=== PATIENT | female | born 1935 | race African-American/Black ===

== ENCOUNTER 2017-12-16 14:51 | Inpatient (IN) | payer OTHER ==
--- NOTE | 2017-12-16 14:53 | PDOC ---
History of Present Illness - History of Present Illness Initial Comments: 12/16/17 15:14 82 y/o F with a PMH of NIDDM, HTN, HLD presents to the ED with AMS today. Per daughter, patient has had recent falls, but has not complained of pain. Daughter states the patient is not oriented to time. Patient had a similar episode of AMS in 2013. Daughter states that the patient has experienced increased urination. Denies fever, chills. Denies chest pain, SOB, N/V/D. <Tatyana Rene - Last Filed: 12/16/17 15:15> <Charlotte Ma - Last Filed: 12/16/17 18:12> - General Chief Complaint: Altered Mental Status Stated Complaint: disoreineted Time Seen by Provider: 12/16/17 14:52 Past History <Tatyana Rene - Last Filed: 12/16/17 15:15> - Past Medical History Diabetes: Yes (TYPE II) HTN: Yes Hypercholesterolemia: Yes - Suicide/Smoking/Psychosocial Hx Smoking Status: Yes Smoking History: Former smoker Have you smoked in the past 12 months: No Number of Cigarettes Smoked Daily: 0 Hx Alcohol Use: No Drug/Substance Use Hx: No Substance Use Type: None Hx Substance Use Treatment: No <Charlotte Ma - Last Filed: 12/16/17 18:12> - Past Medical History Allergies/Adverse Reactions: Allergies Allergy/AdvReac Type Severity Reaction Status Date / Time Penicillins Allergy Unknown Verified 12/16/17 17:51 Home Medications: Ambulatory Orders Atorvastatin Ca [Lipitor] 20 mg PO HS 12/16/17 Losartan Potassium 100 mg PO DAILY 12/16/17 Metformin Xr [Glucophage *Xr* -] 500 mg PO DAILY 12/16/17 Review of Systems - Review of Systems Comments:: 12/16/17 15:14 GENERAL/CONSTITUTIONAL: No fever or chills. No weakness. HEAD, EYES, EARS, NOSE AND THROAT: No change in vision. No ear pain or discharge. No sore throat. CARDIOVASCULAR: No chest pain or shortness of breath. RESPIRATORY: No cough, wheezing, or hemoptysis. GASTROINTESTINAL: No nausea, vomiting, diarrhea or constipation. GENITOURINARY: (+) increased urination. No dysuria. MUSCULOSKELETAL: No joint or muscle swelling or pain. No neck or back pain. SKIN: No rash NEUROLOGIC: (+) recent falls, AMS. No headache, vertigo, loss of consciousness, or change in strength/sensation. ENDOCRINE: No increased thirst. No abnormal weight change. HEMATOLOGIC/LYMPHATIC: No anemia, easy bleeding, or history of blood clots. ALLERGIC/IMMUNOLOGIC: No hives or skin allergy. <AnjuTatyana A - Last Filed: 12/16/17 15:15> *Physical Exam - Physical Exam Comments: GENERAL: Awake, alert, and oriented to person and place, in no acute distress HEAD: No signs of trauma EYES: PERRLA, EOMI, sclera anicteric, conjunctiva clear ENT: Auricles normal inspection, hearing grossly normal, nares patent, oropharynx clear without exudates. Moist mucosa NECK: Normal ROM, supple, no lymphadenopathy, JVD, or masses LUNGS: Breath sounds equal, clear to auscultation bilaterally. No wheezes, and no crackles HEART: Regular rate and rhythm, normal S1 and S2, no murmurs, rubs or gallops ABDOMEN: Soft, nontender, normoactive bowel sounds. No guarding, no rebound. No masses EXTREMITIES: Normal range of motion, no edema. No clubbing or cyanosis. No cords, erythema, or tenderness NEUROLOGICAL: Cranial nerves II through XII grossly intact. Normal speech, normal gait. Motor and sensation intact. SKIN: Warm, Dry, normal turgor, no rashes or lesions noted. <Charlotte Ma - Last Filed: 12/16/17 18:12> Heart Score/ECG Review - ECG Impressions Comment:: EKG read 15:12- NSR 70 bpm, no acute ST/T changes <Charlotte Ma - Last Filed: 12/16/17 18:12> ED Treatment Course - LABORATORY CBC & Chemistry Diagram: 12/16/17 15:10 12/16/17 14:53 <Charlotte Ma - Last Filed: 12/16/17 18:12> Medical Decision Making - Medical Decision Making 12/16/17 15:12 Pt presents with AMS x1 day, disoriented to time, does not answer questions related to the date, current president, etc. Will do AMS workup. UTI is most likely etiology, however, will obtain labs, cultures, CXR and CTH. 12/16/17 15:51 CTH and CXR reviewed, both within normal limits. Awaiting UA. 12/16/17 18:11 Late entry. No obvious etiology for AMS in labs, CXR, UA, CTH. Patient had similar symptoms almost exactly 5 years ago, unclear what prompted them. No signs of meningismus, skin infection. Patient is well-appearing apart from the confusion. She answers questions appropriately. No neuro deficits. Will admit to hospitalist service. Case d/w hospitalist DRAMA TEACHER. <Charlotte Ma - Last Filed: 12/16/17 18:12> *DC/Admit/Observation/Transfer - Attestations Scribe Attestion: 12/16/17 15:15 Documentation prepared by Tatyana Rene, acting as biomedical field service engineer for Charlotte Ma MD. <Tatyana Rene - Last Filed: 12/16/17 15:15> - Discharge Dispostion Admit: Yes <Charlotte Ma - Last Filed: 12/16/17 18:12> Diagnosis at time of Disposition: Altered mental status Qualifiers: Altered mental status type: delirium Qualified Code(s): R41.0 - Disorientation , unspecified - Discharge Dispostion Condition at time of disposition: Stable
[2017-12-16 15:25] LABS: HEMOGLOBIN 13.4 GM/dl (10.7-15.3)
[2017-12-16 15:37] LABS: INR 1.06 (0.82-1.09); PROTHROMBIN TIME (PATIENT) 11.8 SEC (10.2-13.0)
[2017-12-16 15:40] LABS: ALBUMIN 3.8 g/dl (3.5-5.0); ALK PHOS 51 U/L (32-92); ANION GAP 7 (8-16); BILIRUBIN,TOTAL 0.4 mg/dl (0.2-1.0); BLOOD UREA NITROGEN 19 mg/dl (7-18); CALCIUM 9.3 mg/dl (8.4-10.2); CHLORIDE 101 mmol/L (98-107); CO2 28 mmol/L (22-28); CREATININE 0.8 mg/dl (0.6-1.3); GLUCOSE,RANDOM 113 mg/dl (74-106); POTASSIUM 3.8 mmol/L (3.5-5.1); SGOT/AST 22 U/L (10-42); SGPT/ALT 20 U/L (10-40); SODIUM 136 mmol/L (136-145); TOT PROT 7.2 g/dl (6.4-8.3)
[2017-12-16 15:43] LABS: BASO % 0.6 % (0-2.0); EOS % 0.9 % (0-4.5); HEMATOCRIT 41.9 % (32.4-45.2); LYMPH % 25.1 % (8-40); MCHC 32.1 g/dl (32.0-36.0); MEAN CELL VOLUME 90.4 fl (80-96); MEAN PLT VOLUME 10.2 fl (7.5-11.1); MONO % 11.4 % (3.8-10.2); PLATELET COUNT 163 K/MM3 (134-434); RBC 4.63 M/mm3 (3.60-5.2); RDW 13.6 % (11.6-15.6); WHITE BLOOD COUNT 7.9 K/mm3 (4.0-10.8)
[2017-12-16] MEDS ORDERED: SODIUM CHLORIDE 1,000 ML IV STA (16:00)
[2017-12-16 16:56] LABS: URINE APPEARANCE Clear; URINE BILIRUBIN Negative (NEGATIVE); URINE BLOOD Negative (NEGATIVE); URINE GLUCOSE (UA) Negative (NEGATIVE); URINE KETONE Negative (NEGATIVE); URINE LEUK ESTERASE Negative (NEGATIVE); URINE NITRITE Negative (NEGATIVE); URINE PROTEIN Negative (NEGATIVE); URINE UROBILINOGEN 0.2 (0.2-1.0)
[2017-12-16 17:01] LABS: URINE COLOR YELLOW
[2017-12-16 17:17] LABS: LIPASE 312 U/L (73-393)
[2017-12-16 20:46] VITALS: BMI 30.2
--- NOTE | 2017-12-16 23:18 | HP ---
CHIEF COMPLAINT: AMS x1 day PCP: unknown HISTORY OF PRESENT ILLNESS: This is an 82-year-old woman with past medical history of hypertension, NIDDM, hyperlipidemia presents to emergency department with 1 day of altered mental status. Patient's daughter recognized that the patient was disoriented to time and brought her to the emergency department for further evaluation. Patient reports having urinary frequency and dysuria. Patient has been having frequent falls over the past week. Patient had had a similar episode approximately 5 years ago and was found to have influenza at that time. She denies any fevers, chills, shortness of breath, cough, abdominal pain, nausea, vomiting, diarrhea. ER course was notable for: (1) CTH- Moderate atrophy. Chronic microvascular ischemic changes. No gross acute intracranial pathology. (2) UA, CXR, NH4, TSH- WNL (3) Recent Travel: denies PAST MEDICAL HISTORY: see HPI PAST SURGICAL HISTORY: see HPI Social History: Smoking: former- does not remember when she quit Alcohol: denies Drugs: denies Family History: Allergies Penicillins Allergy (Unknown, Verified 12/16/17 17:51) HOME MEDICATIONS: Home Medications Medication Instructions Recorded Atorvastatin Ca [Lipitor] 20 mg PO HS 12/16/17 Losartan Potassium 100 mg PO DAILY 12/16/17 Metformin Xr [Glucophage *Xr* -] 500 mg PO DAILY 12/16/17 REVIEW OF SYSTEMS CONSTITUTIONAL: Absent: fever, chills, diaphoresis, generalized weakness, malaise, loss of appetite, weight change HEENT: Absent: rhinorrhea, nasal congestion, throat pain, throat swelling, difficulty swallowing, mouth swelling, ear pain, eye pain, visual changes CARDIOVASCULAR: Absent: chest pain, syncope, palpitations, irregular heart rate, lightheadedness , peripheral edema RESPIRATORY: Present- cough Absent: shortness of breath, dyspnea with exertion, orthopnea, wheezing, stridor , hemoptysis GASTROINTESTINAL: Absent: abdominal pain, abdominal distension, nausea, vomiting, diarrhea, constipation, melena, hematochezia GENITOURINARY: Absent: dysuria, frequency, urgency, hesitancy, hematuria, flank pain, genital pain MUSCULOSKELETAL: Absent: myalgia, arthralgia, joint swelling, back pain, neck pain SKIN: Absent: rash, itching, pallor HEMATOLOGIC/IMMUNOLOGIC: Absent: easy bleeding, easy bruising, lymphadenopathy, frequent infections ENDOCRINE: Absent: unexplained weight gain, unexplained weight loss, heat intolerance, cold intolerance NEUROLOGIC: Present- mental status changes, frequent falls Absent: headache, focal weakness or paresthesias, dizziness, unsteady gait, seizure, bladder or bowel incontinence PSYCHIATRIC: Absent: anxiety, depression, suicidal or homicidal ideation, hallucinations. PHYSICAL EXAMINATION Vital Signs - 24 hr 12/16/17 12/16/17 12/16/17 14:52 14:55 17:58 Temperature 97.9 F 97.9 F Pulse Rate 72 Pulse Rate [ 64 Right] Respiratory 18 18 Rate Blood Pressure 154/83 Blood Pressure 170/68 [Left Arm] O2 Sat by Pulse 100 97 Oximetry (%) 12/16/17 12/16/17 18:05 22:22 Temperature 97.5 F L Pulse Rate 75 Pulse Rate [ Right] Respiratory 18 Rate Blood Pressure 161/56 Blood Pressure 166/60 [Left Arm] O2 Sat by Pulse 98 Oximetry (%) GENERAL: Awake, alert, and oriented to person only. No acute distress. HEAD: Normal with no signs of trauma. EYES: Pupils equal, round and reactive to light, extraocular movements intact, sclera anicteric, conjunctiva clear. No lid lag. EARS, NOSE, THROAT: Ears normal, nares patent, oropharynx clear without exudates. Moist mucous membranes. NECK: Normal range of motion, supple without lymphadenopathy, JVD, or masses. LUNGS: Breath sounds equal, clear to auscultation bilaterally. No wheezes, and no crackles. No accessory muscle use. HEART: Regular rate and rhythm, normal S1 and S2 without murmur, rub or gallop. ABDOMEN: Soft, nontender, not distended, normoactive bowel sounds, no guarding, no rebound, no masses. No hepatomegaly or splenomegaly. MUSCULOSKELETAL: Normal range of motion at all joints. No bony deformities or tenderness. No CVA tenderness. UPPER EXTREMITIES: 2+ pulses, warm, well-perfused. No cyanosis. No clubbing. No peripheral edema. LOWER EXTREMITIES: 2+ pulses, warm, well-perfused. No calf tenderness. No peripheral edema. NEUROLOGICAL: Cranial nerves II-XII intact. Normal speech. Normal gait. PSYCHIATRIC: Cooperative. Good eye contact. Appropriate mood and affect. SKIN: Warm, dry, normal turgor, no rashes or lesions noted, normal capillary refill. Laboratory Results - last 24 hr 12/16/17 12/16/17 12/16/17 14:53 14:53 14:53 WBC RBC Hgb Hct MCV MCH MCHC RDW Plt Count MPV Neutrophils % Lymphocytes % Monocytes % Eosinophils % Basophils % PT with INR 11.8 INR 1.06 Sodium 136 Potassium 3.8 Chloride 101 Carbon Dioxide 28 Anion Gap 7 L BUN 19 H D Creatinine 0.8 Creat Clearance w eGFR > 60 POC Glucometer Random Glucose 113 H Serum Osmolality Lactic Acid Calcium 9.3 Total Bilirubin 0.4 AST 22 ALT 20 Alkaline Phosphatase 51 Ammonia Creatine Kinase 52 Troponin I Total Protein 7.2 Albumin 3.8 Lipase 312 TSH Urine Color Yellow Urine Appearance Clear Urine pH 7.0 Ur Specific [place] 1.020 Urine Protein Negative Urine Glucose (UA) Negative Urine Ketones Negative Urine Blood Negative Urine Nitrite Negative Urine Bilirubin Negative Urine Urobilinogen 0.2 Ur Leukocyte Esterase Negative 12/16/17 12/16/17 12/16/17 15:01 15:10 15:10 WBC 7.9 D RBC 4.63 Hgb 13.4 Hct 41.9 MCV 90.4 MCH 29.0 MCHC 32.1 RDW 13.6 Plt Count 163 MPV 10.2 Neutrophils % 62.0 Lymphocytes % 25.1 Monocytes % 11.4 H Eosinophils % 0.9 Basophils % 0.6 PT with INR INR Sodium Potassium Chloride Carbon Dioxide Anion Gap BUN Creatinine Creat Clearance w eGFR POC Glucometer [phone] Random Glucose Serum Osmolality Lactic Acid Calcium Total Bilirubin AST ALT Alkaline Phosphatase Ammonia Creatine Kinase Troponin I < 0.03 L Total Protein Albumin Lipase TSH Urine Color Urine Appearance Urine pH Ur Specific [place] Urine Protein Urine Glucose (UA) Urine Ketones Urine Blood Urine Nitrite Urine Bilirubin Urine Urobilinogen Ur Leukocyte Esterase 12/16/17 12/16/17 12/16/17 15:10 17:30 17:30 WBC RBC Hgb Hct MCV MCH MCHC RDW Plt Count MPV Neutrophils % Lymphocytes % Monocytes % Eosinophils % Basophils % PT with INR INR Sodium Potassium Chloride Carbon Dioxide Anion Gap BUN Creatinine Creat Clearance w eGFR POC Glucometer Random Glucose Serum Osmolality 294 Lactic Acid 1.7 Calcium Total Bilirubin AST ALT Alkaline Phosphatase Ammonia 38 H Creatine Kinase Troponin I Total Protein Albumin Lipase TSH 0.74 Urine Color Urine Appearance Urine pH Ur Specific [place] Urine Protein Urine Glucose (UA) Urine Ketones Urine Blood Urine Nitrite Urine Bilirubin Urine Urobilinogen Ur Leukocyte Esterase 12/16/17 20:55 WBC RBC Hgb Hct MCV MCH MCHC RDW Plt Count MPV Neutrophils % Lymphocytes % Monocytes % Eosinophils % Basophils % PT with INR INR Sodium Potassium Chloride Carbon Dioxide Anion Gap BUN Creatinine Creat Clearance w eGFR POC Glucometer 123 Random Glucose Serum Osmolality Lactic Acid Calcium Total Bilirubin AST ALT Alkaline Phosphatase Ammonia Creatine Kinase Troponin I Total Protein Albumin Lipase TSH Urine Color Urine Appearance Urine pH Ur Specific [place] Urine Protein Urine Glucose (UA) Urine Ketones Urine Blood Urine Nitrite Urine Bilirubin Urine Urobilinogen Ur Leukocyte Esterase ASSESSMENT/PLAN: A: 82 female with past medical history of NIDDM, hypertension, hyperlipidemia who was brought to the emergency department by her daughter for 1 day of AMS. P: AMS - CTH No acute pathology - UA and CXR without signs of infection - TSH and NH4- wnl - Similar episode 12/17/12- influenza(+) at that time - flu swab pending - neuro consult- Dickoff HTN - Losaartan 100mg daily HLD - Lipitor 20mg daily NIDDM - FS qACHS - ISS - hold metformin F/E/N - replete prn - Diabetic diet PPX - hold chemical AC 12/15 frequent falls - OOB with assist Dispo- observation Visit type - Emergency Visit Emergency Visit: Yes ED Registration Date: 12/16/17 Care time: The patient presented to the Emergency Department on the above date and was hospitalized for further evaluation of their emergent condition. - New Patient This patient is new to me today: Yes Date on this admission: 12/17/17 - Critical Care Critical Care patient: No
[2017-12-17] MEDS: INSULIN SLIDING SCALE (NOVOLOG) 1 VIAL SQ SCH ×4 (07:08→21:46)
[2017-12-17 08:52] LABS: BASO % 0.5 % (0-2.0); EOS % 1.4 % (0-4.5); HEMOGLOBIN 12.7 GM/dl (10.7-15.3); LYMPH % 37.9 % (8-40); MCH 30.5 pg (25.7-33.7); MCHC 33.3 g/dl (32.0-36.0); MEAN CELL VOLUME 91.5 fl (80-96); MEAN PLT VOLUME 10.1 fl (7.5-11.1); MONO % 5.9 % (3.8-10.2); NEUT % 54.3 % (42.8-82.8); PLATELET COUNT 145 K/MM3 (134-434); RBC 4.15 M/mm3 (3.60-5.2); RDW 13.7 % (11.6-15.6); WHITE BLOOD COUNT 7.3 K/mm3 (4.0-10.8)
[2017-12-17 08:59] LABS: ALBUMIN 3.2 g/dl (3.5-5.0); ALK PHOS 46 U/L (32-92); ANION GAP 5 (8-16); BILIRUBIN,TOTAL 0.6 mg/dl (0.2-1.0); BLOOD UREA NITROGEN 16 mg/dl (7-18); CHLORIDE 107 mmol/L (98-107); CO2 28 mmol/L (22-28); CREATININE 0.7 mg/dl (0.6-1.3); GLUCOSE,RANDOM 77 mg/dl (74-106); MAGNESIUM 1.7 mg/dL (1.8-2.4); POTASSIUM 3.9 mmol/L (3.5-5.1); SGOT/AST 17 U/L (10-42); SGPT/ALT 18 U/L (10-40); SODIUM 140 mmol/L (136-145); TOT PROT 6.1 g/dl (6.4-8.3)
[2017-12-17] MEDS: LOSARTAN POTASSIUM 50 MG TABLET (FP) PO SCH (09:20)
--- NOTE | 2017-12-17 11:11 | PN ---
Physical Exam: SUBJECTIVE: Patient seen and examined sitting up in bed AAOx4, She wants to go home and states she feels fine. She completed 100% of tray OBJECTIVE: Vital Signs Period Temp Pulse Resp BP Sys/Casiano Pulse Ox Last 24 Hr 97.5 F-98.1 F 63-75 18-18 153-170/56-83 97-100 GENERAL: The patient is awake, alert, and fully oriented, in no acute distress. NECK: Trachea midline, full range of motion, supple. LUNGS: Breath sounds equal, clear to auscultation bilaterally, no wheezes, no crackles, no accessory muscle use. HEART: Regular rate and rhythm, S1, S2 without murmur, rub or gallop. ABDOMEN: Soft, nontender, nondistended, normoactive bowel sounds, no guarding, no rebound, no hepatosplenomegaly, no masses. EXTREMITIES: 2+ pulses, warm, well-perfused, no edema. NEUROLOGICAL: Cranial nerves II through XII grossly intact. Normal speech, gait not observed. PSYCH: Normal mood, normal affect. SKIN: Warm, dry, normal turgor, no rashes or lesions noted Laboratory Results - last 24 hr 12/16/17 12/16/17 12/16/17 14:53 14:53 14:53 WBC RBC Hgb Hct MCV MCH MCHC RDW Plt Count MPV Neutrophils % Lymphocytes % Monocytes % Eosinophils % Basophils % PT with INR 11.8 INR 1.06 Sodium 136 Potassium 3.8 Chloride 101 Carbon Dioxide 28 Anion Gap 7 L BUN 19 H D Creatinine 0.8 Creat Clearance w eGFR > 60 POC Glucometer Random Glucose 113 H Serum Osmolality Lactic Acid Calcium 9.3 Magnesium Total Bilirubin 0.4 AST 22 ALT 20 Alkaline Phosphatase 51 Ammonia Creatine Kinase 52 Troponin I Total Protein 7.2 Albumin 3.8 Lipase 312 TSH Urine Color Yellow Urine Appearance Clear Urine pH 7.0 Ur Specific [place] 1.020 Urine Protein Negative Urine Glucose (UA) Negative Urine Ketones Negative Urine Blood Negative Urine Nitrite Negative Urine Bilirubin Negative Urine Urobilinogen 0.2 Ur Leukocyte Esterase Negative 12/16/17 12/16/17 12/16/17 15:01 15:10 15:10 WBC 7.9 D RBC 4.63 Hgb 13.4 Hct 41.9 MCV 90.4 MCH 29.0 MCHC 32.1 RDW 13.6 Plt Count 163 MPV 10.2 Neutrophils % 62.0 Lymphocytes % 25.1 Monocytes % 11.4 H Eosinophils % 0.9 Basophils % 0.6 PT with INR INR Sodium Potassium Chloride Carbon Dioxide Anion Gap BUN Creatinine Creat Clearance w eGFR POC Glucometer [id number] Random Glucose Serum Osmolality Lactic Acid Calcium Magnesium Total Bilirubin AST ALT Alkaline Phosphatase Ammonia Creatine Kinase Troponin I < 0.03 L Total Protein Albumin Lipase TSH Urine Color Urine Appearance Urine pH Ur Specific [place] Urine Protein Urine Glucose (UA) Urine Ketones Urine Blood Urine Nitrite Urine Bilirubin Urine Urobilinogen Ur Leukocyte Esterase 12/16/17 12/16/17 12/16/17 15:10 17:30 17:30 WBC RBC Hgb Hct MCV MCH MCHC RDW Plt Count MPV Neutrophils % Lymphocytes % Monocytes % Eosinophils % Basophils % PT with INR INR Sodium Potassium Chloride Carbon Dioxide Anion Gap BUN Creatinine Creat Clearance w eGFR POC Glucometer Random Glucose Serum Osmolality 294 Lactic Acid 1.7 Calcium Magnesium Total Bilirubin AST ALT Alkaline Phosphatase Ammonia 38 H Creatine Kinase Troponin I Total Protein Albumin Lipase TSH 0.74 Urine Color Urine Appearance Urine pH Ur Specific [place] Urine Protein Urine Glucose (UA) Urine Ketones Urine Blood Urine Nitrite Urine Bilirubin Urine Urobilinogen Ur Leukocyte Esterase 12/16/17 12/17/17 12/17/17 20:55 06:36 08:00 WBC 7.3 RBC 4.15 Hgb 12.7 Hct 38.0 MCV 91.5 MCH 30.5 MCHC 33.3 RDW 13.7 Plt Count 145 MPV 10.1 Neutrophils % 54.3 Lymphocytes % 37.9 Monocytes % 5.9 Eosinophils % 1.4 Basophils % 0.5 PT with INR INR Sodium Potassium Chloride Carbon Dioxide Anion Gap BUN Creatinine Creat Clearance w eGFR POC Glucometer 123 87 Random Glucose Serum Osmolality Lactic Acid Calcium Magnesium Total Bilirubin AST ALT Alkaline Phosphatase Ammonia Creatine Kinase Troponin I Total Protein Albumin Lipase TSH Urine Color Urine Appearance Urine pH Ur Specific [place] Urine Protein Urine Glucose (UA) Urine Ketones Urine Blood Urine Nitrite Urine Bilirubin Urine Urobilinogen Ur Leukocyte Esterase 12/17/17 08:00 WBC RBC Hgb Hct MCV MCH MCHC RDW Plt Count MPV Neutrophils % Lymphocytes % Monocytes % Eosinophils % Basophils % PT with INR INR Sodium 140 Potassium 3.9 Chloride 107 Carbon Dioxide 28 Anion Gap 5 L BUN 16 Creatinine 0.7 Creat Clearance w eGFR > 60 POC Glucometer Random Glucose 77 D Serum Osmolality Lactic Acid Calcium 9.0 Magnesium 1.7 L Total Bilirubin 0.6 D AST 17 D ALT 18 Alkaline Phosphatase 46 Ammonia Creatine Kinase Troponin I Total Protein 6.1 L Albumin 3.2 L Lipase TSH Urine Color Urine Appearance Urine pH Ur Specific [place] Urine Protein Urine Glucose (UA) Urine Ketones Urine Blood Urine Nitrite Urine Bilirubin Urine Urobilinogen Ur Leukocyte Esterase Active Medications Generic Name Dose Route Start Last Admin Trade Name Livan PRN Reason Stop Dose Admin Atorvastatin Calcium 20 mg 12/17/17 22:00 Lipitor - PO HS RADHA Insulin Aspart 1 vial 12/17/17 07:00 12/17/17 07:08 Novolog Vial Sliding Scale - SQ Not Given ACHS [facility] Protocol Losartan Potassium 100 mg 12/17/17 10:00 12/17/17 09:20 Cozaar - PO 100 mg DAILY [facility] Administration ASSESSMENT/PLAN: *Flu swab negative Problem List - Problems (1) HTN (hypertension) Assessment/Plan: -continue home meds, losartin -HLD with home statin -b/p stable Code(s): I10 - ESSENTIAL (PRIMARY) HYPERTENSION (2) Diabetes mellitus, insulin dependent (IDDM), controlled Assessment/Plan: -monitor fingersticks with sliding scale coverage -ADA diet Code(s): E11.9 - TYPE 2 DIABETES MELLITUS WITHOUT COMPLICATIONS; 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 Newell to see pt for recommendations. he was called yesterday Code(s): R41.82 - ALTERED MENTAL STATUS, UNSPECIFIED Qualifiers: Altered mental status type: delirium Qualified Code(s): R41.0 - Disorientation, unspecified Visit type - Emergency Visit Emergency Visit: Yes ED Registration Date: 12/16/17 Care time: The patient presented to the Emergency Department on the above date and was hospitalized for further evaluation of their emergent condition. - New Patient This patient is new to me today: Yes Date on this admission: 12/17/17 - Critical Care Critical Care patient: No - Discharge Referral Referred to [facility] Med P.C.: No
--- NOTE | 2017-12-17 11:48 | CON.NEURO ---
Consult - History of Present Illness History of Present Illness: 82-year-old woman with past medical history of hypertension, NIDDM, hyperlipidemia presents to emergency department with 1 day of altered mental status. Patient's daughter recognized that the patient was disoriented to time and brought her to the emergency department for further evaluation. Patient reports having urinary frequency and dysuria. Patient has been having frequent falls over the past week. Patient had had a similar episode approximately 5 years ago and was found to have influenza at that time. She denies any fevers, chills, shortness of breath, cough, abdominal pain, nausea, vomiting, diarrhea. CTH- Moderate atrophy. Chronic microvascular ischemic changes. No gross acute intracranial pathology. UA, CXR, NH4, TSH- WNL she denies complaints and wants to go home; she lives with son--though unclear if hes around. no AGUILAR , no focal weakness. - History Source History Provided By: Patient - Alcohol/Substance Use Hx Alcohol Use: No - Smoking History Smoking history: Former smoker Have you smoked in the past 12 months: No Aproximately how many cigarettes per day: 0 Home Medications - Allergies Allergies/Adverse Reactions: Allergies Allergy/AdvReac Type Severity Reaction Status Date / Time Penicillins Allergy Unknown Verified 12/16/17 17:51 - Home Medications Home Medications: Ambulatory Orders Atorvastatin Ca [Lipitor] 20 mg PO HS 12/16/17 Losartan Potassium 100 mg PO DAILY 12/16/17 Metformin Xr [Glucophage *Xr* -] 500 mg PO DAILY 12/16/17 Physical Exam-Neuro Vital Signs: Vital Signs Temperature 97.7 F 12/17/17 09:16 Pulse Rate 69 12/17/17 09:16 Respiratory Rate 18 12/17/17 09:16 Blood Pressure 163/58 12/17/17 09:16 O2 Sat by Pulse Oximetry (%) 100 12/17/17 06:39 Constitutional: Yes: Well Nourished Labs: CBC, BMP 12/17/17 08:00 12/17/17 08:00 INR, PTT INR 1.06 (0.82-1.09) 12/16/17 14:53 - Neuro Exam Level Of Consciousness: Yes: Alert (awake , alert, not oriented to yr, date; limited insight recent events, EOMI, no facial, motor 5/5, plantars down ) Imaging - Results Cat Scan: Report Reviewed, Image Reviewed Problem List - Problems (1) Altered mental status Code(s): R41.82 - ALTERED MENTAL STATUS, UNSPECIFIED Qualifiers: Altered mental status type: delirium Qualified Code(s): R41.0 - Disorientation, unspecified (2) Diabetes mellitus, insulin dependent (IDDM), controlled Code(s): E11.9 - TYPE 2 DIABETES MELLITUS WITHOUT COMPLICATIONS; 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 Patient's daughter recognized that the patient was disoriented to time and brought her to the emergency department for further evaluation. Patient reports having urinary frequency and dysuria. Patient has been having frequent falls over the past week. Patient had had a similar episode approximately 5 years ago and was found to have influenza at that time. She denies any fevers, chills, shortness of breath, cough, abdominal pain, nausea, vomiting, diarrhea. CTH- Moderate atrophy. Chronic microvascular ischemic changes. No gross acute intracranial pathology. UA, CXR, NH4, TSH- WNL ? underlying dementia vs new vascular event, nonfocal exam labs WNL lives alone --so attempt to reach out to family and in meantime check MRI BRAIN , BP elevated-to optimize,start [facility] rehab and SW eval Dr Hodgson [phone]
[2017-12-17] MEDS ORDERED: ATORVASTATIN CA 20 MG TABLET (FP) PO SCH (22:00)
[2017-12-18] MEDS ORDERED: LORazepam 2 MG/ML SDV VIAL IVPUSH ONE (06:32)
--- NOTE | 2017-12-18 06:33 | PN ---
Physical Exam: SUBJECTIVE: Patient seen and examined. Denies all complaints, wants to go home. OBJECTIVE: Vital Signs Period Temp Pulse Resp BP Sys/Casiano Pulse Ox Last 24 Hr 97.7 F-99.5 F 63-77 18-18 126-163/54-83 97-100 GENERAL: The patient is awake, alert, oriented x 1, no distress. HEAD: Normal with no signs of trauma. EYES: PERRL, extraocular movements intact, sclera anicteric, conjunctiva clear. No ptosis. ENT: Ears normal, nares patent, oropharynx clear without exudates, moist mucous membranes. NECK: Trachea midline, full range of motion, supple. LUNGS: Breath sounds equal, clear to auscultation bilaterally, no wheezes, no crackles, no accessory muscle use. HEART: Regular rate and rhythm, S1, S2 without murmur, rub or gallop. ABDOMEN: Soft, nontender, nondistended, normoactive bowel sounds, no guarding, no rebound, no hepatosplenomegaly, no masses. EXTREMITIES: 2+ pulses, warm, well-perfused, no edema. NEUROLOGICAL: Cranial nerves II through XII grossly intact. Normal speech, gait not observed. PSYCH: Normal mood, normal affect. SKIN: Warm, dry, normal turgor, no rashes or lesions noted Laboratory Results - last 24 hr 12/17/17 12/17/17 12/17/17 06:36 08:00 08:00 WBC 7.3 RBC 4.15 Hgb 12.7 Hct 38.0 MCV 91.5 MCH 30.5 MCHC 33.3 RDW 13.7 Plt Count 145 MPV 10.1 Neutrophils % 54.3 Lymphocytes % 37.9 Monocytes % 5.9 Eosinophils % 1.4 Basophils % 0.5 Sodium 140 Potassium 3.9 Chloride 107 Carbon Dioxide 28 Anion Gap 5 L BUN 16 Creatinine 0.7 Creat Clearance w eGFR > 60 POC Glucometer 87 Random Glucose 77 D Calcium 9.0 Magnesium 1.7 L Total Bilirubin 0.6 D AST 17 D ALT 18 Alkaline Phosphatase 46 Total Protein 6.1 L Albumin 3.2 L 12/17/17 12/17/17 12/17/17 11:06 15:55 21:48 WBC RBC Hgb Hct MCV MCH MCHC RDW Plt Count MPV Neutrophils % Lymphocytes % Monocytes % Eosinophils % Basophils % Sodium Potassium Chloride Carbon Dioxide Anion Gap BUN Creatinine Creat Clearance w eGFR POC Glucometer 105 146 99 Random Glucose Calcium Magnesium Total Bilirubin AST ALT Alkaline Phosphatase Total Protein Albumin Active Medications Generic Name Dose Route Start Last Admin Trade Name Livan PRN Reason Stop Dose Admin Atorvastatin Calcium 20 mg 12/17/17 22:00 12/17/17 21:46 Lipitor - PO 20 mg HS RADHA Administration Insulin Aspart 1 vial 12/17/17 07:00 12/17/17 21:46 Novolog Vial Sliding Scale - SQ Not Given ACHS RADHA Protocol Losartan Potassium 100 mg 12/17/17 10:00 12/17/17 09:20 Cozaar - PO 100 mg DAILY RADHA Administration ASSESSMENT/PLAN: 82-year-old woman with HTN, NIDDM, and HLD placed in observation with confusion. 1. HTN -COntinue Losartan 2. HLD -Continue statin 3. NIDDM -FS ACHS -ISS -Diabetic diet 4. Confusion/AMS -Underlying dementia vs new vascular event -Toxic metabolic workup unremarkable -For MRI brain today, 1mg Ativan po prior to study -Start ASA per neuro recs 5. F/E/N -Diabetic diet -PO intake adequate DISPO: Consider rehab, SNF placement. PT eval, SW eval to determine disposition. 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 Severe chronic microvascular ischemic changes. Will increase Lipitor to 80mg hs, continue ASA, start telemetry monitoring, obtain echocardiogram, optimize BP, arrange for dc to rehab. Discussed with Dr. Hodgson. Visit type - Emergency Visit Emergency Visit: Yes ED Registration Date: 12/16/17 Care time: The patient presented to the Emergency Department on the above date and was hospitalized for further evaluation of their emergent condition. - New Patient This patient is new to me today: Yes Date on this admission: 12/18/17 - Critical Care Critical Care patient: No - Discharge Referral Referred to [facility] Med [facility] No
[2017-12-18] MEDS ORDERED: LORazepam 0.5 MG TABLET PO ONE (06:46)
[2017-12-18] MEDS ORDERED: PT OWN MED DRAWER 7, Y5N ONE (06:46)
[2017-12-18] MEDS: INSULIN SLIDING SCALE (NOVOLOG) 1 VIAL SQ SCH ×2 (08:11→11:28)
[2017-12-18] MEDS: LOSARTAN POTASSIUM 50 MG TABLET (FP) PO SCH (09:00)
[2017-12-18 09:12] LABS: BASO % 0.2 % (0-2.0); EOS % 0.4 % (0-4.5); HEMATOCRIT 40.9 % (32.4-45.2); HEMOGLOBIN 13.4 GM/dl (10.7-15.3); LYMPH % 17.1 % (8-40); MCH 29.5 pg (25.7-33.7); MCHC 32.7 g/dl (32.0-36.0); MEAN CELL VOLUME 90.4 fl (80-96); MEAN PLT VOLUME 10.1 fl (7.5-11.1); NEUT % 72.3 % (42.8-82.8); PLATELET COUNT 151 K/MM3 (134-434); RBC 4.53 M/mm3 (3.60-5.2); RDW 13.8 % (11.6-15.6)
[2017-12-18] MEDS: ASPIRIN 81 MG CHEWABLE TABLETS PO SCH (10:03)
[2017-12-18 10:09] LABS: ALBUMIN 3.7 g/dl (3.5-5.0); ALK PHOS 52 U/L (32-92); ANION GAP 11 (8-16); BILIRUBIN,TOTAL 0.6 mg/dl (0.2-1.0); BLOOD UREA NITROGEN 15 mg/dl (7-18); CALCIUM 9.3 mg/dl (8.4-10.2); CHLORIDE 100 mmol/L (98-107); CO2 25 mmol/L (22-28); CREATININE 0.7 mg/dl (0.6-1.3); GLUCOSE,RANDOM 157 mg/dl (74-106); POTASSIUM 3.5 mmol/L (3.5-5.1); SGOT/AST 22 U/L (10-42); SGPT/ALT 23 U/L (10-40); SODIUM 136 mmol/L (136-145); TOT PROT 7.1 g/dl (6.4-8.3)
--- NOTE | 2017-12-18 14:00 | EKG ---
Test Reason : Blood Pressure : / mmHG Vent. Rate : 070 BPM Atrial Rate : 070 BPM P-R Int : 148 ms QRS Dur : 080 ms QT Int : 422 ms P-R-T Axes : 072 054 057 degrees QTc Int : 455 ms NORMAL SINUS RHYTHM MINIMAL VOLTAGE CRITERIA FOR LVH, MAY BE NORMAL VARIANT NONSPECIFIC T WAVE ABNORMALITY ABNORMAL ECG NO PREVIOUS ECGS AVAILABLE Confirmed by DANIEL BARLOW MD ([id number]) on 12/18/2017 1:59:45 PM Referred By: Teresa Ramirez Confirmed By:DANIEL BARLOW MD
[2017-12-18] MEDS: ATORVASTATIN CA 80 MG TABLET (FP) PO SCH (22:12)
[2017-12-19 08:53] LABS: HEMATOCRIT 39.7 % (32.4-45.2); HEMOGLOBIN 13.1 GM/dl (10.7-15.3); MCH 29.1 pg (25.7-33.7); MCHC 32.9 g/dl (32.0-36.0); MEAN CELL VOLUME 88.3 fl (80-96); MEAN PLT VOLUME 8.9 fl (7.5-11.1); PLATELET COUNT 169 K/MM3 (134-434); RBC 4.49 M/mm3 (3.60-5.2); RDW 13.8 % (11.6-15.6); WHITE BLOOD COUNT 5.4 K/mm3 (4.0-10.8)
--- NOTE | 2017-12-19 08:56 | PN ---
Physical Exam: SUBJECTIVE: Patient seen and examined, reports feeling tired, wants to go home. OBJECTIVE: patient is a 82-year-old woman with HTN, NIDDM, and HLD, admitted from the emergency department for an acute CVA. Vital Signs Period Temp Pulse Resp BP Sys/Casiano Pulse Ox Last 24 Hr 98.5 F-100.1 F 73-85 16-20 152-174/52-76 95-99 GENERAL: The patient is awake, alert, and oriented times person and place, in no acute distress. HEAD: Normal with no signs of trauma. EYES: PERRL, extraocular movements intact, sclera anicteric, conjunctiva clear. No ptosis. ENT: Ears normal, nares patent, oropharynx clear without exudates, moist mucous membranes. NECK: Trachea midline, full range of motion, supple. LUNGS: Breath sounds equal, clear to auscultation bilaterally, no wheezes, no crackles, no accessory muscle use. HEART: Regular rate and rhythm, S1, S2 without murmur, rub or gallop. ABDOMEN: Soft, nontender, nondistended, normoactive bowel sounds, no guarding, no rebound, no hepatosplenomegaly, no masses. EXTREMITIES: 2+ pulses, warm, well-perfused, no edema. NEUROLOGICAL: slight left sided facial droop noted, upper extremities 4/3 lower extremities 4/3, Normal speech, gait not observed. PSYCH: Normal mood, normal affect. SKIN: Warm, dry, normal turgor, no rashes or lesions noted Laboratory Results - last 24 hr 12/18/17 12/18/17 07:13 07:13 WBC 8.0 RBC 4.53 Hgb 13.4 Hct 40.9 MCV 90.4 MCH 29.5 MCHC 32.7 RDW 13.8 Plt Count 151 MPV 10.1 Neutrophils % 72.3 Lymphocytes % 17.1 Monocytes % 10.0 Eosinophils % 0.4 Basophils % 0.2 Sodium 136 Potassium 3.5 Chloride 100 Carbon Dioxide 25 Anion Gap 11 BUN 15 Creatinine 0.7 Creat Clearance w eGFR > 60 Random Glucose 157 H D Calcium 9.3 Total Bilirubin 0.6 AST 22 D ALT 23 D Alkaline Phosphatase 52 Total Protein 7.1 Albumin 3.7 Active Medications Generic Name Dose Route Start Last Admin Trade Name Freq PRN Reason Stop Dose Admin Aspirin 81 mg 12/18/17 10:00 12/18/17 10:03 Asa - PO 81 mg DAILY RADHA Administration Atorvastatin Calcium 80 mg 12/18/17 13:06 12/18/17 22:12 Lipitor - PO Not Given HS RADHA Losartan Potassium 100 mg 12/17/17 10:00 12/18/17 09:00 Cozaar - PO 100 mg DAILY RADHA Administration Metformin HCl 500 mg 12/18/17 15:30 12/19/17 06:11 Glucophage Xr - PO 500 mg DAILY@0700 RADHA Administration Microbiology 12/16/17 15:10 Blood - Peripheral Venous Blood Culture - Preliminary NO GROWTH OBTAINED AFTER 48 HOURS, INCUBATION TO CONTINUE FOR 3 DAYS. 12/16/17 15:15 Blood - Peripheral Venous Blood Culture - Preliminary NO GROWTH OBTAINED AFTER 48 HOURS, INCUBATION TO CONTINUE FOR 3 DAYS. 12/16/17 14:53 Urine - Urine Clean Catch Urine Culture - Final NO GROWTH OBTAINED 12/16/17 21:30 Nasopharyngeal Swab Influenza Types A,B Antigen (JESSICA) - Final , negative 12/16/17 21:30 Nasopharyngeal Swab - Final, negaitve IMAGING MRI brain right parasagittal rhina infarct. Severe chronic microvascular ischemic changes. ASSESSMENT/PLAN: 1. HTN -COntinue Losartan 2. HLD -Continue statin 3. NIDDM -FS ACHS -ISS -Diabetic diet 4. acute cva - altered mental status secondary to vascular event - continue asa as per neuro recommendations - contious cardiac monitoirng - echo lvef 65-70%, grade I diastolic dysfunction - pending PT evaluation 5. F/E/N -Diabetic diet -PO intake adequate DISPO: pending rehab, SNF placement. Visit type - Emergency Visit Emergency Visit: Yes ED Registration Date: 12/18/17 Care time: The patient presented to the Emergency Department on the above date and was hospitalized for further evaluation of their emergent condition. - New Patient This patient is new to me today: Yes Date on this admission: 12/19/17 - Critical Care Critical Care patient: No
[2017-12-19 08:59] LABS: ALBUMIN 3.4 g/dl (3.5-5.0); ALK PHOS 48 U/L (32-92); ANION GAP 1 (8-16); BILIRUBIN,TOTAL 0.6 mg/dl (0.2-1.0); BLOOD UREA NITROGEN 17 mg/dl (7-18); CALCIUM 8.4 mg/dl (8.4-10.2); CHLORIDE 107 mmol/L (98-107); CO2 27 mmol/L (22-28); CREATININE 0.7 mg/dl (0.6-1.3); GLUCOSE,RANDOM 88 mg/dl (74-106); MAGNESIUM 1.8 mg/dL (1.8-2.4); POTASSIUM 3.8 mmol/L (3.5-5.1); SGOT/AST 20 U/L (10-42); SGPT/ALT 24 U/L (10-40); SODIUM 135 mmol/L (136-145); TOT PROT 6.3 g/dl (6.4-8.3)
[2017-12-19] MEDS: LOSARTAN POTASSIUM 50 MG TABLET (FP) PO SCH (10:00)
[2017-12-19] MEDS: ASPIRIN 81 MG CHEWABLE TABLETS PO SCH (10:00)
[2017-12-19 11:37] LABS: CHOLESTEROL 175 mg/dl; HDL CHOLESTEROL 64 mg/dl (29-89); LDL CHOLESTEROL (ONLY DFH) 97 mg/dl; TRIGLYCERIDES 72 mg/dl (35-160)
--- NOTE | 2017-12-19 14:40 | CONSULT ---
Admitting History and Physical - Primary Care Physician PCP: Sara Muñoz - Admission History of Present Illness: 82-year-old woman with HTN, NIDDM, and HLD, admitted with acute CVA. 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 Severe chronic microvascular ischemic changes. Selected Entries 12/17/17 12/17/17 12/18/17 09:58 17:49 06:00 Breakfast 50% Lunch Supper 100% Temperature 98.9 F 12/18/17 12/18/17 12/18/17 08:09 14:02 17:00 Breakfast 75% Lunch Supper 75% Temperature 98.5 F 12/18/17 12/19/17 12/19/17 22:00 06:00 08:43 Breakfast 75% Lunch Supper Temperature 99.0 F 100.1 F H 12/19/17 12/19/17 12/19/17 09:01 13:21 14:06 Breakfast Lunch 75% Supper Temperature 98.7 F 98.8 F Laboratory Tests 12/18/17 12/19/17 07:13 08:00 WBC 8.0 5.4 D History Source: Family Member, Medical Record Limitations to Obtaining History: Clinical Condition - Advance Directives Advance Directives: Yes: Health Care Proxy - Smoking History Smoking history: Former smoker Have you smoked in the past 12 months: No Aproximately how many cigarettes per day: 0 - Alcohol/Substance Use Hx Alcohol Use: No History - Admission Reason For Visit: ALTERED MENTAL STATUS - Diagnostics X-ray: Report Reviewed CT Scan: Report Reviewed MRI: Report Reviewed - General Mental Status: Awake and Alert, Able to Follow Commands, Forgetful, Vague Attention: Intact Ability to Follow Directions: Fair Head/Neck Control: Good - Hearing Hearing: Normal Speech Evaluation - Communication Primary Language: SWEDISH Communication: Yes: Within Normal Limits - Speech Production Able to Make Needs Known: Yes: WNL Intelligibility: Yes: WNL - Speech Characteristics Voice Loudness: Normal Voice Pitch: Yes: Normal Voice Phonatory-based Quality: Yes: Normal Speech Pattern: Normal Speech Clarity: < 100% Nasal Resonance: Normal Articulation: Yes: Precise - Language/Auditory Comprehension Follows: Yes: 1 Stage Simple Commands - Language/Verbal Expression Able to Communicate Wants and Needs: Yes: WNL - Swallow Evaluation/Bedside Assessment Current Nutritional Intake: Regular, Thin Liquids Oral Secretions: Yes: WFL Dentition: Yes: Missing Teeth Facial Symmetry at Rest: Symmetrical Facial Symmetry on Retraction: Symmetrical Sensation: Normal Against Resistance Opening: Normal Against Resistance Closing: Normal Pucker Lips: Normal Smile: Normal Lingual Movement: Normal, Symmetric Lingual Speed of Movement: Normal Lingual Movement Strgth Against Opposition: Normal Lingual Movement Characteristics: Normal Velopharyngeal Movement: Normal Laryngeal Elevation: WFL Laryngeal Movement: Able to Palpate Rate of Intake: WFL Bolus Size: WFL Labial Seal: WFL Chewing: WFL Oral Prep Time: WFL A-P Transit: WFL Pocketing: None Timing of Swallow: Delayed Coughing/Throat Clear: No Change in Voice: No Recommendations - Speech Evaluation, Impression/Plan Impression: Impaired memory and insight. Family reports pt coughs at times while eating, not demonstrated during assessment. (-) 3 oz water test. Able to chew naya cracker slowly and efficiently. Pt has been tolerating diet since admission. - Dysphagia Impressions/Plan Swallowing Skills: WFL *Silent aspiration: cannot be R/O at bedside Dysphagia Treatment Plan: Small Bites, Chin Tuck/Down, Safe Rate, 1/2 tsp. at a time, Elevate HOB during feed Recommendations: Modified Barium Swallow (as out pt if dysphagia symptoms reported or observed,) - Recommendations Diet Consistency: Regular (soft) Medication Administration: Whole with water Liquids: Thin Liquids
--- NOTE | 2017-12-19 17:02 | PN ---
Progress Note (short form) - Note Progress Note: 82-year-old woman with past medical history of hypertension, NIDDM, hyperlipidemia presents to emergency department with 1 day of altered mental status. Patient's daughter recognized that the patient was disoriented to time and brought her to the emergency department for further evaluation. Patient reports having urinary frequency and dysuria. Patient has been having frequent falls over the past week. Patient had had a similar episode approximately 5 years ago and was found to have influenza at that time. She denies any fevers, chills, shortness of breath, cough, abdominal pain, nausea, vomiting, diarrhea. CTH- Moderate atrophy. Chronic microvascular ischemic changes. No gross acute intracranial pathology. UA, CXR, NH4, TSH- WNL no AGUILAR ,as per daughter gait and memory issues x 6 months MRI reviewed MRI BRAIN : IMPRESSION: 1. Right parasagittal rhina acute infarct. No mass effects or hydrocephalus. No evidence of intra- axial hemorrhage. 2. Severe chronic microvascular ischemic changes in the cerebral white matter and gangliocapsular regions. - History Source History Provided By: Patient - Alcohol/Substance Use Hx Alcohol Use: No - Smoking History Smoking history: Former smoker Have you smoked in the past 12 months: No Aproximately how many cigarettes per day: 0 Home Medications - Allergies Allergies/Adverse Reactions: Allergies Allergy/AdvReac Type Severity Reaction Status Date / Time Penicillins Allergy Unknown Verified 12/16/17 17:51 - Home Medications Home Medications: Ambulatory Orders Atorvastatin Ca [Lipitor] 20 mg PO HS 12/16/17 Losartan Potassium 100 mg PO DAILY 12/16/17 Metformin Xr [Glucophage *Xr* -] 500 mg PO DAILY 12/16/17 Physical Exam-Neuro Vital Signs: Vital Signs Temperature 98.8 F 12/19/17 14:06 Pulse Rate 71 12/19/17 14:06 Respiratory Rate 16 12/19/17 14:06 Blood Pressure 162/56 12/19/17 14:06 O2 Sat by Pulse Oximetry (%) 99 12/19/17 14:06 Constitutional: Yes: Well Nourished Labs: CBCD WBC 5.4 K/mm3 (4.0-10.8) D 12/19/17 08:00 RBC 4.49 M/mm3 (3.60-5.2) 12/19/17 08:00 Hgb 13.1 GM/dl (10.7-15.3) 12/19/17 08:00 Hct 39.7 % (32.4-45.2) 12/19/17 08:00 MCV 88.3 fl (80-96) 12/19/17 08:00 MCHC 32.9 g/dl (32.0-36.0) 12/19/17 08:00 RDW 13.8 % (11.6-15.6) 12/19/17 08:00 Plt Count 169 K/MM3 (134-434) 12/19/17 08:00 MPV 8.9 fl (7.5-11.1) 12/19/17 08:00 CMP Sodium 135 mmol/L (136-145) L 12/19/17 08:00 Potassium 3.8 mmol/L (3.5-5.1) 12/19/17 08:00 Chloride 107 mmol/L (98-107) 12/19/17 08:00 Carbon Dioxide 27 mmol/L (22-28) 12/19/17 08:00 Anion Gap 1 (8-16) L 12/19/17 08:00 BUN 17 mg/dl (7-18) 12/19/17 08:00 Creatinine 0.7 mg/dl (0.6-1.3) 12/19/17 08:00 Creat Clearance w eGFR > 60 (>60) 12/19/17 08:00 Calcium 8.4 mg/dl (8.4-10.2) 12/19/17 08:00 Total Bilirubin 0.6 mg/dl (0.2-1.0) 12/19/17 08:00 AST 20 U/L (10-42) 12/19/17 08:00 ALT 24 U/L (10-40) 12/19/17 08:00 Alkaline Phosphatase 48 U/L (32-92) 12/19/17 08:00 Total Protein 6.3 g/dl (6.4-8.3) L 12/19/17 08:00 Albumin 3.4 g/dl (3.5-5.0) L 12/19/17 08:00 - Neuro Exam Level Of Consciousness: Yes: Alert (awake , alert, not oriented to yr, date; limited insight recent events, EOMI, no facial, motor 5/5, plantars down ) Imaging - Results Cat Scan: Report Reviewed, Image Reviewed Problem List - Problems (1) Altered mental status Code(s): R41.82 - ALTERED MENTAL STATUS, UNSPECIFIED Qualifiers: Altered mental status type: delirium Qualified Code(s): R41.0 - Disorientation, unspecified (2) Diabetes mellitus, insulin dependent (IDDM), controlled Code(s): E11.9 - TYPE 2 DIABETES MELLITUS WITHOUT COMPLICATIONS; Z79.4 - DETONATOR MAKER (CURRENT) USE OF 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 Patient's daughter recognized that the patient was disoriented to time and brought her to the emergency department for further evaluation. Patient reports having urinary frequency and dysuria. Patient has been having frequent falls over the past week. Patient had had a similar episode approximately 5 years ago and was found to have influenza at that time. She denies any fevers, chills, shortness of breath, cough, abdominal pain, nausea, vomiting, diarrhea. CTH- Moderate atrophy. Chronic microvascular ischemic changes. No gross acute intracranial pathology. UA, CXR, NH4, TSH- WNL ECHO EF WNL small R pontine stroke - small vessel, extensive changes-- likely hypertensive , ASA, statin and needs BP control , get Dopplers vascular dementia -- chronic and progressive, will further address as outpt cleared for rehab Dr Hodgson [id number] Problem List - Problems (1) Altered mental status Code(s): R41.82 - ALTERED MENTAL STATUS, UNSPECIFIED Qualifiers: Altered mental status type: delirium Qualified Code(s): R41.0 - Disorientation, unspecified (2) Diabetes mellitus, insulin dependent (IDDM), controlled Code(s): E11.9 - TYPE 2 DIABETES MELLITUS WITHOUT COMPLICATIONS; Z79.4 - DETONATOR MAKER (CURRENT) USE OF INSULIN (3) HTN (hypertension) Code(s): I10 - ESSENTIAL (PRIMARY) HYPERTENSION
[2017-12-19 18:31] LABS: PLATELET ESTIMATE ADEQUATE
[2017-12-19] MEDS: ATORVASTATIN CA 80 MG TABLET (FP) PO SCH (21:47)
[2017-12-20 06:35] VITALS: TEMP 98.6
[2017-12-20] MEDS: LOSARTAN POTASSIUM 50 MG TABLET (FP) PO SCH (09:52)
[2017-12-20] MEDS: ASPIRIN 81 MG CHEWABLE TABLETS PO SCH (09:52)
[2017-12-20 09:55] VITALS: BP 144/48; PULSE 86
--- NOTE | 2017-12-20 10:17 | CON.CARD ---
Consult Consult Specialty:: Cardiology Referred by:: Hospitalist Medicine Reason for Consultation:: Acute pontine stroke - History of Present Illness Chief Complaint: Altered mental status History of Present Illness: 82-year-old woman with past medical history of hypertension, NIDDM, hyperlipidemia presented altered mental status and more frequent falls, brain MRI shows right pontine stroke with severe chronic microvascular ischemic changes. Sensorium has improved to baseline. She denies chest pain, dyspnea, palpitations, near or true syncope, orthopnea, PND or LE edema. - History Source History Provided By: Patient Limitations to Obtaining History: No Limitations - Past Medical History VENEREAL DISEASE CONTROL HEAD: Yes: CVA Cardio/Vascular: Yes: HTN, Hyperlipdemia - Alcohol/Substance Use Hx Alcohol Use: No - Smoking History Smoking history: Former smoker Have you smoked in the past 12 months: No Aproximately how many cigarettes per day: 0 Home Medications - Allergies Allergies/Adverse Reactions: Allergies Allergy/AdvReac Type Severity Reaction Status Date / Time Penicillins Allergy Unknown Verified 12/16/17 17:51 - Home Medications Home Medications: Ambulatory Orders Atorvastatin Ca [Lipitor] 20 mg PO HS 12/16/17 Losartan Potassium 100 mg PO DAILY 12/16/17 metFORMIN XR [Glucophage *Xr* -] 500 mg PO DAILY 12/16/17 Vital Signs: Vital Signs Temperature 98.6 F 12/20/17 06:00 Pulse Rate 86 12/20/17 09:00 Respiratory Rate 18 12/20/17 09:00 Blood Pressure 144/48 12/20/17 09:00 O2 Sat by Pulse Oximetry (%) 97 12/20/17 06:00 Constitutional: Yes: No Distress, Calm, Thin Neck: Yes: Supple Respiratory: Yes: Regular, CTA Bilaterally Gastrointestinal: Yes: Normal Bowel Sounds, Soft Cardiovascular: Yes: Regular Rate and Rhythm JVD: No Carotid Bruit: No Heart Sounds: Yes: S1, S2 Murmur: Yes: Systolic Murmur, Grade 1 Edema: No - Other Data Labs, Other Data: CBC, BMP 12/19/17 08:00 12/19/17 08:00 INR, PTT INR 1.06 (0.82-1.09) 12/16/17 14:53 NSR @ 70 min criteria LVH Echo: Report Reviewed Holter: Report Reviewed (Telemetry: SR w/o PAF) Ejection Fraction %: LVEF > or = 40 % Imaging - Results Chest X-ray: Report Reviewed (NAD) Ultrasound: Report Reviewed (No sig carotid stenosis) MRI: Report Reviewed (Acute right pontine infarct) Problem List - Problems (1) Hyperlipidemia associated with type 2 diabetes mellitus Code(s): E11.69 - TYPE 2 DIABETES MELLITUS WITH OTHER SPECIFIED COMPLICATION; E78.5 - HYPERLIPIDEMIA, UNSPECIFIED (2) Right pontine stroke Code(s): I63.50 - CEREB INFRC DUE TO UNSP OCCLS OR STENOS OF UNSP CEREB ARTERY (3) Altered mental status Code(s): R41.82 - ALTERED MENTAL STATUS, UNSPECIFIED Qualifiers: Altered mental status type: delirium Qualified Code(s): R41.0 - Disorientation, unspecified (4) Diabetes mellitus, insulin dependent (IDDM), controlled Code(s): E11.9 - TYPE 2 DIABETES MELLITUS WITHOUT COMPLICATIONS; Z79.4 - SUSTAINABLE DEVELOPMENT POLICY ANALYST (CURRENT) USE OF INSULIN (5) HTN (hypertension) Code(s): I10 - ESSENTIAL (PRIMARY) HYPERTENSION (6) Diastolic dysfunction without heart failure Code(s): I51.9 - HEART DISEASE, UNSPECIFIED Assessment/Plan 1. 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 Diastolic dysfunction, euvolemic 3. HTN/HCVD 4. Hyperlipidemia 5. Type 2 DM 6. Vascular dementia P:1. Continue ASA 81 qd, losartan 100 qd, Lipitor 80 qd as you are 2. No evidence of PAF thus far on telemetry monitoring, but would benefit from extended 14 day monitor for arrhythmia. 3. May d/c for PT-SNF from CV standpoint, please set up f/u with cardiology office [phone] for f/u and arrhythmia monitor placement. 4. Thank you for consultative opportunity
--- NOTE | 2017-12-20 11:03 | DS ---
Physical Exam: SUBJECTIVE: Patient seen and examined, reports feeling better, denies any headache or blurred vision, wants to go home OBJECTIVE: Patient is a 82-year-old woman with past medical history of hypertension, NIDDM, hyperlipidemia presents to emergency department with 1 day of altered mental status. Patient's daughter recognized that the patient was disoriented to time and brought her to the emergency department for further evaluation. Patient reports having urinary frequency and dysuria. Patient has been having frequent falls over the past week. Patient had had a similar episode approximately 5 years ago and was found to have influenza at that time. She denies any fevers, chills, shortness of breath, cough, abdominal pain, nausea, vomiting, diarrhea. ER course was notable for: (1) CTH- Moderate atrophy. Chronic microvascular ischemic changes. No gross acute intracranial pathology. (2) UA, CXR, NH4, TSH- WNL Vital Signs Period Temp Pulse Resp BP Sys/Casiano Pulse Ox Last 24 Hr 98.6 F-100.3 F 71-86 16-20 144-162/48-67 97-99 PHYSICAL EXAM GENERAL: The patient is awake, alert, and oriented times person and place, in no acute distress. HEAD: Normal with no signs of trauma. EYES: PERRL, extraocular movements intact, sclera anicteric, conjunctiva clear. No ptosis. ENT: Ears normal, nares patent, oropharynx clear without exudates, moist mucous membranes. NECK: Trachea midline, full range of motion, supple. LUNGS: Breath sounds equal, clear to auscultation bilaterally, no wheezes, no crackles, no accessory muscle use. HEART: Regular rate and rhythm, S1, S2 without murmur, rub or gallop. ABDOMEN: Soft, nontender, nondistended, normoactive bowel sounds, no guarding, no rebound, no hepatosplenomegaly, no masses. EXTREMITIES: 2+ pulses, warm, well-perfused, no edema. NEUROLOGICAL: slight left sided facial droop noted, upper extremities 4/3 lower extremities 4/3, Normal speech, gait not observed. PSYCH: Normal mood, normal affect. SKIN: Warm, dry, normal turgor, no rashes or lesions noted LABS Laboratory Results - last 24 hr 12/19/17 12/19/17 07:30 08:00 Neutrophils % (Manual) 66.0 Band Neutrophils % 3.0 Lymphocytes % (Manual) 16.0 Monocytes % (Manual) 13 H Platelet Estimate Adequate Triglycerides 72 D Cholesterol 175 Total LDL Cholesterol 97 HDL Cholesterol 64 CBC WBC 5.4 K/mm3 (4.0-10.8) D 12/19/17 08:00 RBC 4.49 M/mm3 (3.60-5.2) 12/19/17 08:00 Hgb 13.1 GM/dl (10.7-15.3) 12/19/17 08:00 Hct 39.7 % (32.4-45.2) 12/19/17 08:00 MCV 88.3 fl (80-96) 12/19/17 08:00 MCH 29.1 pg (25.7-33.7) 12/19/17 08:00 MCHC 32.9 g/dl (32.0-36.0) 12/19/17 08:00 RDW 13.8 % (11.6-15.6) 12/19/17 08:00 Plt Count 169 K/MM3 (134-434) 12/19/17 08:00 MPV 8.9 fl (7.5-11.1) 12/19/17 08:00 Neutrophils % Hamper Maker 12/19/17 08:00 Neutrophils % (Manual) 66.0 % (42.8-82.8) 12/19/17 08:00 Band Neutrophils % 3.0 % (0-10) 12/19/17 08:00 Lymphocytes % Hamper Maker 12/19/17 08:00 Lymphocytes % (Manual) 16.0 % (8-40) 12/19/17 08:00 Monocytes % Hamper Maker 12/19/17 08:00 Monocytes % (Manual) 13 % (3.8-10.2) H 12/19/17 08:00 Eosinophils % Hamper Maker 12/19/17 08:00 Basophils % Hamper Maker 12/19/17 08:00 Platelet Estimate Adequate 12/19/17 08:00 CMP Sodium 135 mmol/L (136-145) L 12/19/17 08:00 Potassium 3.8 mmol/L (3.5-5.1) 12/19/17 08:00 Chloride 107 mmol/L (98-107) 12/19/17 08:00 Carbon Dioxide 27 mmol/L (22-28) 12/19/17 08:00 Anion Gap 1 (8-16) L 12/19/17 08:00 BUN 17 mg/dl (7-18) 12/19/17 08:00 Creatinine 0.7 mg/dl (0.6-1.3) 12/19/17 08:00 Creat Clearance w eGFR > 60 (>60) 12/19/17 08:00 POC Glucometer 99 UNITS (80-120) 12/17/17 21:48 Random Glucose 88 mg/dl (74-106) D 12/19/17 08:00 Serum Osmolality 294 mosm/kg (278-305) 12/16/17 17:30 Lactic Acid 1.7 mmol/L (0.0-2.0) 12/16/17 15:10 Calcium 8.4 mg/dl (8.4-10.2) 12/19/17 08:00 Magnesium 1.8 mg/dL (1.8-2.4) 12/19/17 08:00 Total Bilirubin 0.6 mg/dl (0.2-1.0) 12/19/17 08:00 AST 20 U/L (10-42) 12/19/17 08:00 ALT 24 U/L (10-40) 12/19/17 08:00 Alkaline Phosphatase 48 U/L (32-92) 12/19/17 08:00 Ammonia 38 umol/L (11-32) H 12/16/17 17:30 Creatine Kinase 52 IU/L (26-192) 12/16/17 14:53 Troponin I < 0.03 ng/ml (0.03-0.50) L 12/16/17 15:10 Total Protein 6.3 g/dl (6.4-8.3) L 12/19/17 08:00 Albumin 3.4 g/dl (3.5-5.0) L 12/19/17 08:00 Triglycerides 72 mg/dl (35-160) D 12/19/17 07:30 Cholesterol 175 mg/dl 12/19/17 07:30 Total LDL Cholesterol 97 mg/dl 12/19/17 07:30 HDL Cholesterol 64 mg/dl (29-89) 12/19/17 07:30 Lipase 312 U/L (73-393) 12/16/17 14:53 TSH 0.74 uIU/ml (0.358-3.74) 12/16/17 17:30 IMAGING MRI brain right parasagittal rhina infarct. Severe chronic microvascular ischemic changes. echo lvef 65-70%, grade I diastolic dysfunction HOSPITAL COURSE: Patient was admitted from the emergency department for metabolic encephalopaty secondary to CVA. MRI noted as above, patient was placed on ASA daily, lipitor was increased to 80 mg ghs. She was placed on continuous cardiac monitoring no tele events was noted. Neurology and cardiology was consulted and followed patient throughout admission. patient reports a past medical history of hypertension, losartan was continued and blood pressure remained at goal. patient has a past medical history of NIDDM, fingersticks was continued ACHS with regular insulin sliding scale. Physical therpay evaluation was completed and restorative service was recommended. Date of Admission:12/18/17 Date of Discharge: 12/20/17 Minutes to complete discharge: 45 Discharge Summary Reason For Visit: ALTERED MENTAL STATUS Current Active Problems Altered mental status (Acute) Diabetes mellitus, insulin dependent (IDDM), controlled (Acute) Diastolic dysfunction without heart failure (Acute) HTN (hypertension) (Acute) Hyperlipidemia associated with type 2 diabetes mellitus (Acute) Right pontine stroke (Acute) Condition: Improved - Instructions Diet, Activity, Other Instructions: you were admitted to the hospital for a CVA your lipitor was increased to 80mg daily and continue to take aspirin 81 mg daily continue all medications as prescribed please follow up the trial court justice within 1 week after discharge from short term rehab please follow up with the neurologist within 2 weeks after discharge from short term rehab if any new or peristent symptoms develop please return to the emergency department Referrals: Alex Hodgson DO [Staff Physician] - 3 Weeks Aram Nicole MD [Staff Physician] - 1 Week Disposition: [facility] - Home Medications Comprehensive Discharge Medication List: Ambulatory Orders Losartan Potassium 100 mg PO DAILY 12/16/17 metFORMIN XR [Glucophage Xr -] 500 mg PO DAILY 12/16/17 Aspirin [ASA -] 81 mg PO DAILY #30 tab.chew 12/20/17 Atorvastatin Ca [Lipitor] 80 mg PO HS #30 tablet 12/20/17 This patient is new to me today: No Emergency Visit: Yes ED Registration Date: 12/18/17 Care time: The patient presented to the Emergency Department on the above date and was hospitalized for further evaluation of their emergent condition. Critical Care patient: No - Discharge Referral Referred to [facility] No
== END 2017-12-20 10:30 | DRG 64 ==
LOC: FER 14:51 → INTOOBSV 18:52 → UNDOADMOB 18:52 → FM/S 18:52 → OBSVTOIN 12-18 12:52
PROVIDERS: ADMIT Hospitalist; ATTEND Nurse Practitioner Family
DX: I63.9 Cerebral infarction, unspecified (principal); G93.41 Metabolic encephalopathy; I10 Essential (primary) hypertension; E11.9 Type 2 diabetes mellitus without complications; E78.5 Hyperlipidemia, unspecified; F01.50 Vascular dementia, unspecified severity, without behavioral disturbance, psychotic disturbance, mood disturbance, and anxiety
CPT/HCPCS: 36415; 70450-TC; 70551-TC; 71045-TC; 80053; 80061; 81003; 82140; 82550; 82962; 83605; 83690; 83735; 83930; 84443; 84484; 85025; 85610; 87040; 87086; 87804; 93005; 93306-TC; 93880-TC; 97116-GP; 97161-GP; 99283-25; G0378